=== PATIENT | male | born 1985 ===

== ENCOUNTER 2019-12-23 09:18 | Outpatient (CLI) | payer SELFPAY ==
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
== END 2019-12-23 09:38 ==
PROVIDERS: Visit Provider Student in an Organized Health Care Education/Training Program
DX: S69.92XA Unspecified injury of left wrist, hand and finger(s), initial encounter (principal); S62.325A Displaced fracture of shaft of fourth metacarpal bone, left hand, initial encounter for closed fracture; S62.327A Displaced fracture of shaft of fifth metacarpal bone, left hand, initial encounter for closed fracture
CPT/HCPCS: 73130

== ENCOUNTER 2019-12-30 11:56 | Outpatient (CLI) | payer SELFPAY ==
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
== END 2019-12-30 12:16 ==
PROVIDERS: Visit Provider Student in an Organized Health Care Education/Training Program
DX: S62.325A Displaced fracture of shaft of fourth metacarpal bone, left hand, initial encounter for closed fracture (principal); S62.327A Displaced fracture of shaft of fifth metacarpal bone, left hand, initial encounter for closed fracture
CPT/HCPCS: 73130

== ENCOUNTER 2020-01-19 12:56 | Outpatient (CLI) | payer SELFPAY ==
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
== END 2020-01-19 13:16 ==
PROVIDERS: Visit Provider Student in an Organized Health Care Education/Training Program
DX: S62.325D Displaced fracture of shaft of fourth metacarpal bone, left hand, subsequent encounter for fracture with routine healing (principal); S62.327D Displaced fracture of shaft of fifth metacarpal bone, left hand, subsequent encounter for fracture with routine healing
CPT/HCPCS: 73130